=== PATIENT | male | born 1990 | race Caucasian/White ===

== ENCOUNTER 2016-08-28 04:28 | Emergency (ER) | payer BC, OTHER ==
[2016-08-28 05:36] LABS: Hematocrit 47 % (42-52); Hemoglobin 15.8 g/dl (14.0-18.0); Mean Corpuscular HGB Conc 34 g/dl (31-36); Mean Corpuscular Hemoglobin 32 pg (27-31); Mean Corpuscular Volume 94 fL (80-94); Mean Platelet Volume 9 um3 (7.4-10.4); Red Blood Count 4.94 10^6/ul (4.0-5.4); Red Cell Distribution Width 13 % (10.5-15); White Blood Count 10.6 10^3/ul (3.5-10.8)
[2016-08-28 05:48] LABS: ALT 13 U/L (7-52); AST 24 U/L (13-39); Albumin 4.6 g/dL (3.2-5.2); Alkaline Phosphatase 46 U/L (34-104); Anion Gap 10 mmol/L (2-11); Blood Urea Nitrogen 7 mg/dL (6-24); CO2 Carbon Dioxide 24 mmol/L (22-32); Calcium 9.5 mg/dL (8.6-10.3); Chloride 104 mmol/L (101-111); EGFR African American 135.4 (>60); EGFR Non-African American 105.3 (>60); Globulin 2.9 g/dL (2-4); Glucose 98 mg/dL (70-100); Potassium 3.1 mmol/L (3.5-5.0); Sodium 138 mmol/L (133-145); Total Protein 7.5 g/dL (6.4-8.9)
[2016-08-28 05:53] LABS: Acetaminophen < 15 mcg/mL; Alcohol 141 mg/dL (<10); Salicylate < 2.50 mg/dL (<30)
[2016-08-28 06:03] LABS: TSH (Thyroid Stimulating Horm) 1.76 mcIU/mL (0.34-5.60)
--- NOTE | 2016-08-28 06:19 | ED ---
Flakito Gibson Adam, rayneed for Ervin Cortés on 08/28/16 at 0456 . Psychiatric Complaint - HPI Summary HPI Summary: Pt is a 26 year old brought in by law enforcement as 9.41 with SI. Pt believes that a friend of his called the police because of concerns that he would harm himself. The pt was reportedly inside a bathroom with a knife and he presents with multiple superficial lacerations on his left forearm. He states that he has a hx of depression and that he has been feeling "down" lately. He reports significant alcohol use but denies drug use. He states that he is UTD with his vaccinations. - History Of Current Complaint Chief Complaint: EDMentalHealth Time Seen by Provider: 08/28/16 04:46 Hx Obtained From: Patient Onset/Duration: Gradual Onset, Lasting Hours, Still Present Timing: Constant Severity Initially: Moderate Severity Currently: Moderate Character: Depressed Aggravating Factor(s): Nothing Alleviating Factor(s): Nothing Related History: Positive For: Prior Psychiatric Issues Has Suicidal: Reports: Thoughts, Demonstrates Gesture PMH/Surg Hx/FS Hx/Imm Hx Psychiatric History: Reports: Hx Depression Infectious Disease History: Denies: Traveled Outside the [place] in Last 30 Days - Family History Known Family History: Positive: None - R and n/c - Social History Lives: With Family - Mother Alcohol Use: Daily Hx Substance Use: No Substance Use Type: Reports: None Review of Systems Positive: Other - Superficial lacerations on left forearm Positive: Depressed All Other Systems Reviewed And Are Negative: Yes Physical Exam Triage Information Reviewed: Yes Vital Signs Reviewed: Yes Appearance: Positive: Well-Appearing, No Pain Distress Skin: Positive: Other - Superficial lacerations on left forearm Head/Face: Positive: Normal Head/Face Inspection Eyes: Positive: EOMI, ARSALAN ENT: Positive: Normal ENT inspection Neck: Positive: Supple, Nontender Respiratory/Lung Sounds: Positive: Clear to Auscultation, Breath Sounds Present Cardiovascular: Positive: RRR, Pulses are Symmetrical in both Upper and Lower Extremities Abdomen Description: Positive: Nontender, Soft Bowel Sounds: Positive: Present Musculoskeletal: Positive: Normal, Strength/ROM Intact Course/Dx - Differential Dx/Clinical Impression Provider Diagnosis: Suicidal ideation Discharge - Discharge Plan Condition: Stable Disposition: OTHER Discharge Disposition Comment: Pending mental health evaluation The documentation as recorded by the Flakito bonner Adam accurately reflects the service I personally performed and the decisions made by me, Ervin Cortés.
[2016-08-28 10:07] LABS: Urine Bilirubin Negative (Negative); Urine Glucose Negative (Negative); Urine Nitrite Negative (Negative)
[2016-08-28 10:35] LABS: Benzodiazepine Urine Screen None Detected (None Detect)
[2016-08-28] MEDS ORDERED: Ondansetron ODT TAB* 4 MG PO ONE (11:13)
[2016-08-28 17:09] VITALS: BP 121/73
== END 2016-08-28 19:50 | disposition home or self-care (01) ==
LOC: ED 04:28
DX: R45.851 Suicidal ideations (principal)
CPT/HCPCS: 36415; 80053; 80307; 80320; 80329; 81003; 84443; 85025; 99285; G0480

== ENCOUNTER 2018-04-01 20:01 | Inpatient (IN) | payer OTHER ==
--- NOTE | 2018-04-01 20:09 | ED ---
Psychiatric Complaint - HPI Summary HPI Summary: This patient is a 27 year old M brought in by ambulance to [facility] due to an overdose of various unknown allergy medications and [id number] Seroquel tablets around 1700 this evening with the intention of harming self. Patient denies consumption of etoh or other street drugs. Patient was hospitalized for a similar episode on 03/13/18, requiring intubation. Officer reports a previously unreported attempt on 03/23/18. - History Of Current Complaint Hx Obtained From: Patient, EMS, Medical Records Onset/Duration: Lasting Hours Timing: Constant Character: Depressed Alleviating Factor(s): Nothing Has Suicidal: Reports: Thoughts, Demonstrates Gesture - Allergies/Home Medications Allergies/Adverse Reactions: Allergies Allergy/AdvReac Type Severity Reaction Status Date / Time No Known Allergies Allergy Verified 04/01/18 20:10 PMH/Surg Hx/FS Hx/Imm Hx Sensory History: Denies: Hx Contacts or Glasses, Hx Deafness, Hx Hearing Aid Opthamlomology History: Denies: Hx Contacts or Glasses EENT History: Denies: Hx Deafness Psychiatric History: Reports: Hx Eating Disorder - Periods of restricting food, exercise, or bingeing., Hx Depression Denies: Hx of Violent Episodes Against Others - Family History Known Family History: Positive: Hypertension - Social History Alcohol Use: Daily Alcohol Amount: Beer, whiskey, Tequila this date Hx Substance Use: No Substance Use Type: Reports: Other Substance Use Comment - Amount & Last Used: Pt denies Smoking Status (MU): Light Every Day Tobacco Smoker Type: Cigarettes Have You Smoked in the Last Year: Yes Review of Systems Negative: Fever Positive: Depressed All Other Systems Reviewed And Are Negative: Yes Physical Exam - Summary Physical Exam Summary: Appearance:, Well-nourished, lying in bed comfortably Skin: Warm, dry, no obvious rash Eyes: sclera anicteric, no conjunctival pallor, pupils are 5mm and reactive ENT: mucous membranes moist, pharynx appears normal Neck: Supple, nontender Respiratory: Clear to auscultation, no signs of respiratory distress Cardiovascular: Normal S1, S2. No murmurs. Normal distal pulses in tibial and radial bilaterally. Tachycardic at 125 BPM Abdomen: Soft, nontender, normal active bowel sounds present Musculoskeletal: Normal, Strength/ROM Intact Neurological: , awake and alert, oriented, to person and month no year or place speech is garbled at times, gets confused when forming sentences Triage Information Reviewed: Yes Vital Signs Reviewed: Yes Diagnostics - Laboratory Result Diagrams: 04/02/18 05:54 04/02/18 05:54 Lab Statement: Any lab studies that have been ordered have been reviewed, and results considered in the medical decision making process. - EKG 2015 Cardiac Rate: Tachycardia - 106 BPM EKG Rhythm: Sinus Tachycardia Ectopy: None Course/Dx - Course Course Of Treatment: 27 year old M brought in by ambulance to [facility] due to an overdose of various unknown allergy medications and [id number] Seroquel tablets around 1700 this evening with the intention of harming self. Patient denies consumption of etoh or other street drugs. Patient was hospitalized for a similar episode on 03/13/18, requiring intubation. Patient is awake, alert, and oriented to person and month but not year or place. Speech is garbled at times. Patient gets confused when forming sentences. Pupils are 5mm and reactive. Patient is given IVF. Bloodwork and toxicology is obtained. Patient care discussed with Dr. Evans, hospitalist, who agrees to admit this patient. - Differential Dx/Clinical Impression Provider Diagnosis: Suicide attempt by drug ingestion - Physician Notifications Discussed Care Of Patient With: Ashley Evans - hospitalist Time Discussed With Above Provider: 21:30 Instructed by Provider To: Admit As Inpatient - Critical Care Time Critical Care Time: 30-74 min - Polysubstance overdose with abnormal mentation and vital signs, requiring frequent reassessment, IV fluids, and admission to telemetry. Discharge - Sign-Out/Discharge Documenting (check all that apply): Patient Departure - admit - Discharge Plan Condition: Guarded Disposition: ADMITTED TO [facility] - Billing Disposition and Condition Condition: GUARDED Disposition: Admitted to [facility] - Attestation Statements Document Initiated by Scribe: Yes Documenting Scribe: Peyton Benavides Provider For Whom Esme is Documenting (Include Credential): Ambrose Sumner MD Scribe Attestation: Peyton Gibson, rayneed for Ambrose Sumner MD on 04/03/18 at 0053. Scribe Documentation Reviewed: Yes Provider Attestation: The documentation as recorded by the scribePeyton accurately reflects the service I personally performed and the decisions made by me, Ambrose Sumner MD
[2018-04-01] MEDS ORDERED: NS 0.9% 1000 ML* 2,000 ML IV ONE (20:10)
[2018-04-01 20:36] LABS: ABS Basophils 0.1 10^3/ul (0-0.2); ABS Eosinophils 0 10^3/ul (0-0.6); ABS Lymphocytes 0.8 10^3/ul (1.0-4.8); ABS Monocytes 0.9 10^3/ul (0-0.8); ABS Neutrophils 18.9 10^3/ul (1.5-7.7); ABS Nucleated RBC 0 10^3/ul; Eosinophil % 0.1 % (0-6); Hematocrit 40 % (42-52); Hemoglobin 13.8 g/dl (14.0-18.0); Lymphocyte % 3.7 % (25-47); Mean Corpuscular HGB Conc 34 g/dl (31-36); Mean Corpuscular Hemoglobin 32 pg (27-31); Mean Corpuscular Volume 93 fL (80-94); Nucleated Red Blood Cells % 0; Platelet Count 312 10^3/ul (150-450); Red Blood Count 4.31 10^6/ul (4.00-5.40); Red Cell Distribution Width 12 % (10.5-15); White Blood Count 20.7 10^3/ul (3.5-10.8)
[2018-04-01 20:54] LABS: EGFR Non-African American 96.7 (>60)
[2018-04-01] MEDS ORDERED: Albuterol 2.5 MG/3 ML NEB.SOL* (0.083%) INH PRN (23:28)
[2018-04-02] MEDS: NS 0.9% 1000 ML* 1,000 ML IV SCH ×3 (00:03→16:51)
[2018-04-02 01:49] LABS: Urine Appearance Clear; Urine Blood Negative (Negative); Urine Color Yellow; Urine Ketones 1+ (Negative); Urine Protein Negative (Negative); Urine Specific Gravity 1.008 (1.010-1.030); Urine Urobilinogen Negative (Negative)
[2018-04-02] MEDS ORDERED: ZOSYN 3.375 GM x ONE DOSE over 30 miuntes IVPB ×2 (02:00)
[2018-04-02] MEDS ORDERED: Piperacillin/Tazobac ADVAN(*) 3.375 GM in NS 0.9% 100 ML* 100 ML IVPB SCH (05:30)
[2018-04-02 06:10] LABS: ABS Basophils 0 10^3/ul (0-0.2); ABS Eosinophils 0 10^3/ul (0-0.6); ABS Lymphocytes 1.2 10^3/ul (1.0-4.8); ABS Monocytes 1.1 10^3/ul (0-0.8); ABS Neutrophils 11.9 10^3/ul (1.5-7.7); ABS Nucleated RBC 0 10^3/ul; Eosinophil % 0.1 % (0-6); Hematocrit 39 % (42-52); Hemoglobin 13.2 g/dl (14.0-18.0); Lymphocyte % 8.7 % (25-47); Mean Corpuscular HGB Conc 34 g/dl (31-36); Mean Corpuscular Hemoglobin 32 pg (27-31); Mean Corpuscular Volume 93 fL (80-94); Mean Platelet Volume 8.4 fL (7.4-10.4); Nucleated Red Blood Cells % 0.1; Platelet Count 314 10^3/ul (150-450); Red Blood Count 4.19 10^6/ul (4.00-5.40); Red Cell Distribution Width 12 % (10.5-15); White Blood Count 14.3 10^3/ul (3.5-10.8)
[2018-04-02 06:20] LABS: INR 1.07 (0.77-1.02)
[2018-04-02 06:24] LABS: EGFR Non-African American 113.5 (>60)
--- NOTE | 2018-04-02 08:30 | HP ---
CC: Dr. Carrillo * HISTORY AND PHYSICAL: DATE OF ADMISSION: 04/01/18 PRIMARY CARE PROVIDER: Dr. Carrillo. ATTENDING PHYSICIAN WHILE IN THE HOSPITAL: Dr. Ashley Evans * (report dictated by Regina Sandoval NP). CHIEF COMPLAINT: 1. Suicidal ideation. 2. Overdose. HISTORY OF PRESENTING ILLNESS: Mr. Seals is a 27-year-old male patient who was just here about 20 days ago with a suicide attempt from overdose. He was admitted and intubated in our ICU, stabilized and then transferred to the [facility] for stabilization. He was discharged on 03/22/18, about 10 days ago. He had been with his parents and had been doing well to the point where his parents felt that he could go home without their observation, that he should be doing well with his friends and they were giving him some more space. They had taken him back to his apartment on . He was initially doing well; however, he started becoming suicidal. He denied hearing voices. He said that he tried to take his life again tonight with overdosing on Benadryl and Seroquel. He states that he has not been hallucinating. There were no recent changes in his social life that he admitted to me. He says that he was just feeling very depressed and this is why he tried to take his life. He sent a text to one of his friends. His friend was concerned given his history and they had called 911 and the patient was brought into the hospital for evaluation. Mr. Seals did try to take his life today by ingesting Seroquel in addition to his Benadryl. PAST MEDICAL HISTORY: Significant for: 1. Depression. 2. Anxiety. 3. Asthma. PAST SURGICAL HISTORY: Denied. HOME MEDICATIONS: According to the discharge included: 1. Seroquel 100 mg at bedtime. 2. Celexa 20 mg daily. ALLERGIES TO MEDICATIONS: No known drug allergies. FAMILY HISTORY: His mother has Parkinson's. Father is healthy. SOCIAL HISTORY: He does state that he has a history of abusing alcohol, occasionally smokes marijuana, and denies any other illicit substance abuse. Surrogate decision maker is his parents. REVIEW OF SYSTEMS: There was no documented fever. He denies having any significant weight change. There is no double vision. There is no ear discharge. He denied having any rhinorrhea. There was no sore throat. There was no thyroid enlargement. He denied having any chest pain. There was no orthopnea. There was no nocturnal dyspnea. He denied having any abdominal pain. There was no nausea, no vomiting. There was no dysuria. There was no frequency. There was no seizure. There was no loss of consciousness. No pruritus and no skin ulcerations. Review of 14 systems completed, all others were negative. PHYSICAL EXAMINATION GENERAL: At this time, Mr. Seals is a 27-year-old male patient. He is sitting on the ED stretcher. He does not appear to be in any acute distress. He is awake and he is alert. He is, again, at times confused. He will be having a conversation and then he will trail off and he was at one point talking about [place], which was not in context to the questions being asked, but he does know his name and he does know he is in the hospital. VITAL SIGNS: Blood pressure 142/82 with a pulse of 94, respirations 18, O2 sat 99%, temperature 99.6. HEENT: Head: Atraumatic, normocephalic. Eyes: Pupils are equal and reactive to light. Sclerae are anicteric and not pale. Throat: Oral mucosa appears to be moist. No oropharyngeal erythema. NECK: Supple. LUNGS: Clear to auscultation. There were no wheezes, rales, or rhonchi. HEART: Sounds S1, S2. He is tachycardic. He had no murmurs, rubs, or gallops. ABDOMEN: Soft. It was flat. It was nontender. Bowel sounds were present. EXTREMITIES: Pulses were 2+ throughout. He is moving all 4 extremities with 5/ 5 strength. NEUROLOGICAL: He is awake. He is alert. He is oriented again to self, place; confused to time. Speech is clear. Tongue midline. He had no gross focal deficits. SKIN: Intact. LABORATORY DATA/DIAGNOSTIC STUDIES: Today revealed a WBC of 20.7, RBC of 4.31 , hemoglobin of 13.8, hematocrit of 40, platelet count of 312. His sodium was 137, potassium was 3.6, chloride 103, bicarb 25, BUN 12, creatinine of 0.93, glucose of 163, lactate 1.9, calcium 8.7. Total bili 0.4, AST 17, ALT 12, alk phos 56, albumin of 4. Toxicology was negative thus far. He did have an EKG obtained today, which did show sinus tachycardia, rate of 107. He did have diffuse ST depression. We looked back at the previous EKG and the ST depression is now new. His QTc was 478. When you look back to previous EKGs, again that depression was not present, but again he is more tachycardic now. He is not complaining of chest pain. Old medical records were reviewed. ASSESSMENT AND PLAN: Mr. Seals is a 27-year-old male patient with a known psychiatric history with overdose recently, here on 03/13/18, presenting again today with suicidal ideation in an attempt to take his life with Benadryl and Seroquel overdose. He will be admitted under inpatient status for: 1. Overdose: I did touch base with poison control. The plan will be for supportive care, p.r.n. benzodiazepines if needed for agitation. We will check EKG in the morning. In addition to this, we will place him on normal saline at 125 an hour. We will continue to monitor him, continue with supportive care, and we will get psychiatric evaluation when he is stable. 2. History of depression and anxiety: I am holding his meds currently given the fact that he overdosed on them today and we will restart them when deemed appropriate by Psychiatry. 3. Asthma: We will continue p.r.n. albuterol. 4. DVT prophylaxis: We will order SCDs. 5. Fluids, electrolytes, nutrition: He can have a clear liquid diet. TIME SPENT: Time spent on the admission was 60 minutes, greater than half of that time was spent [id number] with the patient obtaining my history and physical, the other half of the time was spent going over the plan of care with the patient and implementing plan of care. I did discuss the plan of care with my attending, Dr. Evans, and she is in agreement. REGINA SANDOVAL NP [id number]/CPS #: [id number] [facility] MED[facility] CENTERJenniffer
[2018-04-02] MEDS ORDERED: Acetaminophen TAB* 325 MG PO PRN (10:48)
--- NOTE | 2018-04-02 10:49 | PN ---
Subjective Date of Service: 04/02/18 Interval History: Pt is feeling ok this AM. He states he has not been hallucinating recently. He does seem to think his skin is more yellow/orange than it should be. 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 Objective Active Medications: Albuterol (Ventolin 2.5 Mg/3 Ml Neb.Griselda*) 2.5 mg INH Q2H PRN PRN Reason: SOB/WHEEZING Sodium Chloride (Ns 0.9% 1000 Ml*) 1,000 mls @ 125 mls/hr IV PER RATE STELLA Last Admin: 04/02/18 08:59 Dose: 125 mls/hr Vital Signs - 8 hr 04/02/18 04/02/18 04/02/18 02:45 03:00 04:00 Temperature 99.9 F 99.7 F 98.8 F Pulse Rate 92 85 94 Respiratory 10 17 19 Rate Blood Pressure 143/85 137/83 141/99 (mmHg) O2 Sat by Pulse 98 99 98 Oximetry 04/02/18 04/02/18 04/02/18 04:04 05:00 05:56 Temperature 99.9 F Pulse Rate 86 Respiratory 20 11 Rate Blood Pressure 136/92 (mmHg) O2 Sat by Pulse 97 98 Oximetry 04/02/18 04/02/18 04/02/18 06:00 07:00 07:01 Temperature 99.9 F 99.9 F 99.9 F Pulse Rate 77 90 99 Respiratory 19 20 23 Rate Blood Pressure 140/90 129/77 (mmHg) O2 Sat by Pulse 99 97 99 Oximetry 04/02/18 04/02/18 04/02/18 08:00 08:01 09:00 Temperature 99.7 F 99.7 F 99.9 F Pulse Rate 77 79 76 Respiratory 14 18 15 Rate Blood Pressure 117/60 115/73 (mmHg) O2 Sat by Pulse 97 98 100 Oximetry 04/02/18 04/02/18 04/02/18 09:01 10:00 10:01 Temperature 99.9 F 99.9 F 99.7 F Pulse Rate 73 71 83 Respiratory 18 13 10 Rate Blood Pressure 137/71 (mmHg) O2 Sat by Pulse 99 99 100 Oximetry Oxygen Devices in Use Now: Nasal Cannula Appearance: Young male sitting up in bed, NAD Eyes: No Scleral Icterus Ears/Nose/Mouth/Throat: Mucous Membranes Moist Respiratory: Symmetrical Chest Expansion and Respiratory Effort, Clear to Auscultation Cardiovascular: NL Sounds; No Murmurs; No JVD, RRR, No Edema, - - HR does increase with sitting up Abdominal: NL Sounds; No Tenderness; No Distention Extremities: No Clubbing, Cyanosis Skin: No Nodules or Sclerosis Neurological: Alert and Oriented x 3 Result Diagrams: 04/02/18 05:54 04/02/18 05:54 Assess/Plan/Problems-Billing Mr Seals is a 27 yo M who has a h/o depression/anxiety and was recently hospitalized at [facility] for a benadryl overdose who presented to the ER after overdosing on seroquel and benadryl in an attempt to harm himself. - Patient Problems (1) Overdose Current Visit: Yes Status: Acute Code(s): T50.901A - POISONING BY UNSP DRUG/ MEDS/BIOL SUBST, ACCIDENTAL, INIT SNOMED Code(s): 78689097 Comment: Pt overdosed on both seroquel and benadryl. He had what was likely a toxic encephalopathy on admission as he was hallucinating and very tangential in speech. He is clear currently. Await psychiatry consultation. (2) Encephalopathy, toxic Current Visit: No Status: Acute Code(s): G92 - TOXIC ENCEPHALOPATHY SNOMED Code(s): 54016387 Comment: Secondary to benadryl and seroquel overdose. Now resolved. (3) Urinary retention Current Visit: Yes Status: Acute Code(s): R33.9 - RETENTION OF URINE, UNSPECIFIED SNOMED Code(s): 130434565 Comment: Likely secondary to benadryl overdose. Remove erickson tonight and eval for continued retention. (4) DVT prophylaxis Current Visit: Yes Status: Acute Code(s): LCZ8603 - SNOMED Code(s): 517831837 Comment: SCDs (5) Full code status Current Visit: Yes Status: Acute Code(s): Z78.9 - OTHER SPECIFIED HEALTH STATUS SNOMED Code(s): 873440331 (6) Major depression, recurrent Current Visit: No Status: Acute Code(s): F33.9 - MAJOR DEPRESSIVE DISORDER, RECURRENT, UNSPECIFIED SNOMED Code(s): 89335994
[2018-04-03] MEDS: NS 0.9% 1000 ML* 1,000 ML IV SCH ×2 (00:42→05:34)
[2018-04-03 06:53] LABS: Hematocrit 37 % (42-52); Hemoglobin 12.6 g/dl (14.0-18.0); Mean Corpuscular HGB Conc 34 g/dl (31-36); Mean Corpuscular Hemoglobin 32 pg (27-31); Mean Corpuscular Volume 94 fL (80-94); Mean Platelet Volume 7.9 fL (7.4-10.4); Platelet Count 283 10^3/ul (150-450); Red Blood Count 3.92 10^6/ul (4.00-5.40); Red Cell Distribution Width 12 % (10.5-15); White Blood Count 9.2 10^3/ul (3.5-10.8)
--- NOTE | 2018-04-03 13:30 | PN ---
Subjective Date of Service: 04/03/18 Interval History: Pt is feeling well. He has no complaints today. He would like to be unhooked from the IV/fluids. Psychiatry has not been in yet to see the patient. Objective Active Medications: Acetaminophen (Tylenol Tab*) 650 mg PO Q4H PRN PRN Reason: PAIN Albuterol (Ventolin 2.5 Mg/3 Ml Neb.Griselda*) 2.5 mg INH Q2H PRN PRN Reason: SOB/WHEEZING Vital Signs - 8 hr 04/03/18 05:38 Temperature 97.9 F Pulse Rate 58 Respiratory 14 Rate Blood Pressure 113/63 (mmHg) O2 Sat by Pulse 100 Oximetry Oxygen Devices in Use Now: None Appearance: Young male sitting up in bed, NAD Eyes: No Scleral Icterus Ears/Nose/Mouth/Throat: Mucous Membranes Moist Respiratory: Symmetrical Chest Expansion and Respiratory Effort, Clear to Auscultation Cardiovascular: NL Sounds; No Murmurs; No JVD, RRR, No Edema Abdominal: NL Sounds; No Tenderness; No Distention Extremities: No Clubbing, Cyanosis Skin: No Nodules or Sclerosis Neurological: Alert and Oriented x 3 Result Diagrams: 04/03/18 06:40 04/02/18 05:54 Microbiology and Other Data: Microbiology 04/02/18 00:34 Aerobic Blood Culture - Preliminary Blood Venous No Growth Day 1 Anaerobic Blood Culture - Preliminary No Growth Day 1 04/02/18 00:34 Aerobic Blood Culture - Preliminary Blood Venous No Growth Day 1 Anaerobic Blood Culture - Preliminary No Growth Day 1 Assess/Plan/Problems-Billing Mr Seals is a 27 yo M who has a h/o depression/anxiety and was recently hospitalized at [facility] for a benadryl overdose who presented to the ER after overdosing on seroquel and benadryl in an attempt to harm himself. - Patient Problems (1) Overdose Current Visit: Yes Status: Acute Code(s): T50.901A - POISONING BY UNSP DRUG/ MEDS/BIOL SUBST, ACCIDENTAL, INIT SNOMED Code(s): 03382614 Comment: Pt overdosed on both seroquel and benadryl. He had what was likely a toxic encephalopathy on admission as he was hallucinating and very tangential in speech. Pt's mental status normal currently. Await psychiatry input. (2) Encephalopathy, toxic Current Visit: Yes Status: Acute Code(s): G92 - TOXIC ENCEPHALOPATHY SNOMED Code(s): 38735034 Comment: Secondary to benadryl and seroquel overdose. Now resolved. (3) Urinary retention Current Visit: Yes Status: Acute Code(s): R33.9 - RETENTION OF URINE, UNSPECIFIED SNOMED Code(s): 316901954 Comment: Likely secondary to benadryl overdose. Resolved. (4) DVT prophylaxis Current Visit: Yes Status: Acute Code(s): YCS8983 - SNOMED Code(s): 618196415 Comment: SCDs/ambulation (5) Full code status Current Visit: Yes Status: Acute Code(s): Z78.9 - OTHER SPECIFIED HEALTH STATUS SNOMED Code(s): 442775729 (6) Major depression, recurrent Current Visit: No Status: Acute Code(s): F33.9 - MAJOR DEPRESSIVE DISORDER, RECURRENT, UNSPECIFIED SNOMED Code(s): 24256708
--- NOTE | 2018-04-03 14:11 | CONSULT ---
Identification - Patient Identification Reason for Psychiatric Consultation: Suicidal Ideation -: Patient is a 27 year old, M admitted on 04/01/18. - MHU Identification Employment Status: Employed Hx Psychiatric Hospitalization: Yes History - Objective HPI: Addy is seen in consultation following another medical hospitalization secondary to intentional, suicidal overdose, this time on Benadryl and Seroquel. He is tearful today and cannot contract for safety. "I feel even worse this time than the last time. Everything was fine until the day after Thanksgiving. I had gone back to my apartment and I just started feeling so bad about my self. I cancelled all my plans with friends and broke up with this girl I've been seeing. It all fell apart so fast." The patient did follow up with [facility] after his recent discharge earlier this month from the [facility], however, the [facility] program had been missing days because of the holiday and this created a delay in him utilizing these group services and being fully enrolled, although he did show up to one as a guest to see what it was like. The patient' s parents, Jay and Verona, are present and supportive. They are advocating for a longer hospitalization this time and the patient is agreeable to signing into the [facility] on a voluntary basis for further inpatient care. I have spoken with hospitalist attending, Dr. Bundy, who indicates that the patient is medically clear for transfer. Exam Appearance: Well Developed/Nourished Hygiene: Normal Grooming: Well Kept Psychomotor Activities: Normal Exhibits Abnormal Movement: No Attitude and Relatedness: Cooperative Eye Contact: Good - Speech Quality: Unpressured Latencies: Normal Quantity: Appropriate Patient's Decription of Mood: "Sad" Observed Affect: Tearful Affect Consistent with: Dysphoria Patient's Thought Process: Coherent Thought Content: Yes Suicidal Planning, No Passive Wish, No Homicidal Ideation, No Paranoid Ideation Experiencing Hallucinations: No, Sensorium is Clear Type of Hallucinations: Visual: No, Auditory: No, Command: No Level of Consciousness: Alert Orientation: Yes Intact, Yes Orientated to Time, Yes Orientated to Place, Yes Orientated to Person Impulse Control: Tenuous Insight and Judgement: Fair Impression - Impression Clinical Impression: 27 y.o. single, bisexual, male with a history of depression and alcohol abuse who was just discharged earlier this month from the [facility], who is currently admitted to the medical service on following an intentional suicidal overdose on Benadryl and Seroquel. Inpatient DSM-V Dx: F33.9 Merits Inpatient Hospitalization: Yes MHU: Problem List - Patient Problems (1) Major depressive disorder, recurrent episode Current Visit: No Status: Acute Code(s): F33.9 - MAJOR DEPRESSIVE DISORDER, RECURRENT, UNSPECIFIED SNOMED Code(s): 309859482 Plan - Treatment Plan Treatment Plan: The patient is to be transferred to the [facility] on 01.19 paperwork. There we will continue citalopram and quetiapine therapies and perhaps increase the doses. Psychiatry will take over as the captain of the ship. Continued Medication Management: Continue Outpt Medication Medications: Current Medications Acetaminophen (Tylenol Tab*) 650 mg PO Q4H PRN PRN Reason: PAIN Albuterol (Ventolin 2.5 Mg/3 Ml Neb.Griselda*) 2.5 mg INH Q2H PRN PRN Reason: SOB/WHEEZING - Discharge Plan Discharge Plan: Inpatient Hospitalization
[2018-04-03] MEDS ORDERED: hydrOXYzine HCL TAB* 50 MG PO PRN (14:16)
[2018-04-03] MEDS ORDERED: QUEtiapine TAB* 100 MG PO SCH (21:00)
[2018-04-04] MEDS ORDERED: Citalopram TAB* 20 MG PO SCH (09:00)
--- NOTE | 2018-04-04 13:14 | PN ---
MHU: Group Therapy Note - Service Type Service Type: [id number] Group Psychotherapy - Group Psychotherapy Note: Gwyn was active throughout cbt this morning, initiating thougtful and insightful clinincal conversation. He presents with good affect that is euthymic with discussion, and exhibits good sense of humor. He discussed interest in moving eventually, but is unsure of where to move to, and expressed his interest in moving in with his parents as a means to save money. He was well related and empathic with peers and staff.
[2018-04-04] MEDS ORDERED: QUEtiapine TAB* 100 MG PO SCH (21:00)
--- NOTE | 2018-04-04 23:04 | HP ---
PSYCHIATRIC ASSESSMENT: DATE OF ADMISSION: 04/01/18 DATE OF TRANSFER: To the behavioral science unit was 04/03/18. JUSTIFICATION FOR PSYCHIATRIC INPATIENT CARE: The patient is in need of 24- hour supervision and care due to suicidal overdose on Benadryl and Seroquel. CHIEF COMPLAINT: "I can't believe I'm back here, things were going well, I just got suicidal so fast." HISTORY OF PRESENT ILLNESS: The patient is a 27-year-old single, mixed raced, bisexual male with a history of depression and self-injury, who was just discharged from the behavioral science unit on 03/22/18, who now returns to the BSU as a transfer from the medical unit where he underwent medical stabilization following another overdose this time on approximately 20 tablets of 100 mg Seroquel and close to a full bottle of [id number] Benadryl. The patient indicates that when he left our unit on 03/22/18, he did follow through with seeing a psychiatrist at [facility]. He also started attending groups at the [facility]; however, he missed several of these later in the week of due to the holiday. He is stating that on the Tuesday following he was back in his apartment alone, started isolating himself from his friends and had a resumption of suicidal ideations, "I see all my friends who have moved out of [place] and now have careers and are advancing and I feel like I'm stuck here. I can't believe after all those coping skills that I learnt, my head just went right back to suicide as the solution to my problems." The patient indicates that he drank a little bit of alcohol, but did not like the taste of it and got a container of Benadryl and took them with the remaining Seroquel that he had which was prescribed from his previous hospitalization. He was medically cleared, but still having suicidal ideations and was transferred back to the BSU. Symptomatically, he continues to endorse difficulty falling asleep, anhedonia, guilt, poor energy, lack of concentration, and suicidal thoughts. He denies appetite disturbance or psychomotor retardation. Historically, he has had some manic symptoms such as increased goal-directed activities, hyper-talkativeness with mild racing thoughts most recently over the summer; however, he denies any history of grandiosity, decreased need for sleep, distractibility, or indiscrete behaviors. PAST PSYCHIATRIC HISTORY: The patient was referred to [facility] and sees Dr. Yoo there as well as a therapist. He is still working on enrollment in the [facility] program. He has had numerous suicide attempts in the past including as a teenager when he tried to cut his throat. The second was in the summer, when he drank a liter and half of tequila and tried to cut himself, then in December 2017 when he overdosed on over-the- counter pills and alcohol, then again in March of this year when he overdosed on alcohol and Benadryl followed by this most recent suicidal attempt. He denies any history of trauma. He denies any history of traumatic brain injury. He denies any history of abuse or neglect. SUBSTANCE ABUSE HISTORY: The patient does endorse a history of abusing alcohol and states that he has utilized community treatment such as AA groups in the past. He denies any history of rehabs or DWIs. Most recent drinks were on the day of his overdose. He also occasionally uses cannabis with last use 4 to 5 months ago. He has used LSD on two occasions, but he denies other illicit substance abuse. PAST MEDICAL HISTORY: Significant for early life asthma that has resolved. MEDICATIONS: He is on: 1. Citalopram 20 mg p.o. daily. 2. Quetiapine 100 mg daily. ALLERGIES: He has no known drug allergies. FAMILY HISTORY: He has a younger sister with depression and a mother who has had both depression and self-harming behaviors in the past. He is unaware of any completed suicides. SOCIAL HISTORY: The patient was born and raised in the [place] area to an intact family and his parents are still together. He has a 31-year-old older sister and a 20-year-old younger sister. The patient dropped out of high school in 10th grade due to anxiety, but got a GED, later got an associate's degree at [employer] and a bachelor's degree in [employer] production from [place] [employer]. 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 He is living in an apartment with 2 roommates in [place]. He recently broke up with a girlfriend. The patient is sexually active with 2 different partners and identifies as bisexual. He has no history of sexually transmitted diseases. The patient is not rastafarian nor spiritual. He has never been in the . He has no history of legal problems. MENTAL STATUS EXAM: The patient is a young, mixed raced, fair-skinned male with close cropped shaved hair, stubbly rodriguez, who has a nose ring. He has tattoos on his fingers and his right upper arm. He is casually groomed with a plaid shirt and sweatpants. He is sitting up in a chair playing a guitar, making fairly good eye contact. Speech has some mild stuttering, but he uses fluent Norwegian. Mood is depressed with a constricted affect. Thought process is linear and goal directed. Thought content is significant for some continued thoughts of suicide. He denies homicidality. He denies auditory or visual hallucinations. Insight and judgment appear to be fair given his willingness to come on to the behavioral health unit. Cognitively, he is awake and alert with what would appear to be an average intellect. DIAGNOSES: [place] I: Major depressive disorder, recurrent, severe, without psychotic features; generalized anxiety disorder; and alcohol use disorder. [place] II: Rule out borderline personality traits. ASSESSMENT: The patient is a 27-year-old single, white, bisexual male with a history of depression, who is currently hospitalized in the ICU following an intentional suicidal overdose on a handful of epax-rtp-rwhusmi Benadryl as well as Seroquel. He is medically cleared and now transferred to the BSU where he will need likely a longer term treatment than his most recent hospitalization. PLAN: We will admit the patient to the BSU on q.15 minute checks for his own safety. We will increase citalopram from 20 to 30 mg daily and increase quetiapine from 100 to 150 mg p.o. q.h.s. It is uncertain whether he would be agreeable to substance abuse treatment, although I think this is warranted given his abuse of alcohol. While he is here, he is certainly encouraged to avail himself of all milieu activities including individual and group psychotherapies. We will be working with his family on a family meeting prior to his discharge. I think the most important treatment for him will be [facility] since it is coping skill based and he lacks ways of dealing with his problems that do not involve suicidal thought. [id number]/CPS #: [id number] JOSÉ MANUEL
[2018-04-05] MEDS: Citalopram TAB* 20 MG PO SCH (08:57)
--- NOTE | 2018-04-05 14:27 | PN ---
Subjective - Subjective Date of Service: 04/05/18 Service Type: [id number] Hosp care 25 min moderate complexity Subjective: Addy is less irritable than yesterday but still feels a sense of hopelessness, like he has nothing in life to look forward to and that his would come as a relief. He denies active suicidal planning though. He also relates that he's noticed an increase in activation and anxiety when taking quetiapine at night. We discussed the possibility of lithium augmentation, particularly due to my suspicions that he might have bipolar disorder, and he is agreeable with a trial of this. He is active on the unit and going to groups. Objective - Appearance Appearance: Well Developed/Nourished, Thin Framed Dysmorphic Features: No Hygiene: Normal Grooming: Well Kept - Behavior Psychomotor Activities: Normal Exhibits Abnormal Movement: No - Attitude and Relatedness Attitude and Relatedness: Cooperative Eye Contact: Good - Speech Quality: Unpressured Latencies: Normal Quantity: Appropriate - Mood Patient's Decription of Mood: "Sad" - Affect Observed Affect: Constricted Affect Consistent with: Dysphoria - Thought Process Patient's Thought Process: Coherent Thought Content: Yes Passive Wish, No Suicidal Planning, No Homicidal Ideation, No Paranoid Ideation - Sensorium Type of Hallucinations: Visual: No, Auditory: No, Command: No - Level of Consciousness Level of Consciousness: Alert Orientation: Yes Intact, Yes Orientated to Time, Yes Orientated to Place, Yes Orientated to Person - Impulse Control Impulse Control: Tenuous - Insight and Judgement Insight and Judgement: Fair - Group Participation Particating in Group Activities: Yes - Medication Management Medication Management Adherence: Yes Assessment - Assessment Merits Inpatient Hospitalization: For Immediate Safety, For Stabilization Inpatient DSM-V Dx: F33.9 Clinical Impression: 27 y.o. single, bisexual, male with a history of depression and alcohol abuse who was just discharged earlier this month from the BSU, who is currently admitted to the medical service on following an intentional suicidal overdose on Benadryl and Seroquel. MHU: Problem List - Patient Problems (1) Major depressive disorder, recurrent episode Current Visit: No Status: Acute Code(s): F33.9 - MAJOR DEPRESSIVE DISORDER, RECURRENT, UNSPECIFIED SNOMED Code(s): 333419787 Plan - Plan Treatment Plan: The patient has been readmitted to psychiatry and is taking a trial of citalopram 30mg PO qday and quetiapine 150mg PO qhs. Quetiapine may be causing akathisia and will be replaced with a trial of lithium 300mg PO qhs. Continue inpatient treatment. Continued Medication Management: Different Medication Medications: Current Medications Acetaminophen (Tylenol Tab*) 650 mg PO Q4H PRN PRN Reason: PAIN Albuterol (Ventolin 2.5 Mg/3 Ml Neb.Griselda*) 2.5 mg INH Q2H PRN PRN Reason: SOB/WHEEZING Citalopram Hydrobromide (Celexa Tab*) 30 mg PO DAILY [facility] Last Admin: 04/05/18 08:57 Dose: 30 mg Hydroxyzine HCl (Atarax Tab*) 50 mg PO Q6H PRN PRN Reason: ANXIETY [place] Carbonate ([place] Carbonate Tab*) 300 mg PO BEDTIME [facility] - Discharge Plan Discharge Plan: Inpatient Hospitalization
--- NOTE | 2018-04-05 15:57 | PN ---
MHU: Group Therapy Note - Service Type Service Type: [id number] Group Psychotherapy - Group Participation Patient Participating in Group: Yes Level of Group Participation: Attentive Relatedness to Group: Rhoda Daly was pleasant during group. He offered a few answers to questions and was participatory. he left group early.
[2018-04-05] MEDS: Lithium Carbonate TAB* 300 MG PO SCH (20:31)
[2018-04-06] MEDS: Citalopram TAB* 20 MG PO SCH (09:28)
--- NOTE | 2018-04-06 10:47 | PN ---
Subjective - Subjective Date of Service: 04/06/18 Service Type: [id number] Hosp care 25 min moderate complexity Subjective: Addy tolerated lithium well last night but continued to have suicidal thoughts. "It's like a thought loop in my mind. I'm just so used to going there in my head." He is interacting well in the milieu and attending groups regularly. Objective - Appearance Appearance: Well Developed/Nourished Dysmorphic Features: No Hygiene: Normal Grooming: Well Kept - Behavior Psychomotor Activities: Normal Exhibits Abnormal Movement: No - Attitude and Relatedness Attitude and Relatedness: Cooperative Eye Contact: Good - Speech Quality: Unpressured Latencies: Normal Quantity: Appropriate - Mood Patient's Decription of Mood: "Sad" - Affect Observed Affect: Constricted Affect Consistent with: Dysphoria - Thought Process Patient's Thought Process: Coherent Thought Content: Yes Passive Wish, No Suicidal Planning, No Homicidal Ideation, No Paranoid Ideation - Sensorium Experiencing Hallucinations: No, Sensorium is Clear Type of Hallucinations: Visual: No, Auditory: No, Command: No - Level of Consciousness Level of Consciousness: Alert Orientation: Yes Intact, Yes Orientated to Time, Yes Orientated to Place, Yes Orientated to Person - Impulse Control Impulse Control: Tenuous - Insight and Judgement Insight and Judgement: Fair - Group Participation Particating in Group Activities: Yes - Medication Management Medication Management Adherence: Yes Assessment - Assessment Merits Inpatient Hospitalization: For Immediate Safety, For Stabilization Inpatient DSM-V Dx: F33.9 Clinical Impression: 27 y.o. single, bisexual, male with a history of depression and alcohol abuse who was just discharged earlier this month from the BSU, who is currently admitted to the medical service on following an intentional suicidal overdose on Benadryl and Seroquel. MHU: Problem List - Patient Problems (1) Major depressive disorder, recurrent episode Current Visit: No Status: Acute Code(s): F33.9 - MAJOR DEPRESSIVE DISORDER, RECURRENT, UNSPECIFIED SNOMED Code(s): 206407330 Plan - Plan Treatment Plan: The patient has been readmitted to psychiatry and is taking a trial of citalopram 30mg PO qday and lithium 300mg PO qhs. Will increase citalopram to 40mg PO qday. Continue inpatient treatment. Continued Medication Management: Different Medication Medications: Current Medications Acetaminophen (Tylenol Tab*) 650 mg PO Q4H PRN PRN Reason: PAIN Albuterol (Ventolin 2.5 Mg/3 Ml Neb.Griselda*) 2.5 mg INH Q2H PRN PRN Reason: SOB/WHEEZING Hydroxyzine HCl (Atarax Tab*) 50 mg PO Q6H PRN PRN Reason: ANXIETY [place] Carbonate ([place] Carbonate Tab*) 300 mg PO BEDTIME [facility] Last Admin: 04/05/18 20:31 Dose: 300 mg - Discharge Plan Discharge Plan: Inpatient Hospitalization
--- NOTE | 2018-04-06 11:29 | PN ---
MHU: Group Therapy Note - Service Type Service Type: [id number] Group Psychotherapy - Cognitive Behavioral Group Therapy ( CBT):Patient was attentive and participatory in CBT programming this morning, and remained in good behavioral control. Patient expressed positive insights regarding relevant treatment interventions and goals.
[2018-04-06] MEDS: Lithium Carbonate TAB* 300 MG PO SCH (20:34)
[2018-04-07] MEDS: Citalopram TAB* 40 MG PO SCH (10:13)
--- NOTE | 2018-04-07 14:55 | PN ---
Subjective - Subjective Date of Service: 04/07/18 Service Type: [id number] Hosp care 15 min low complexity Subjective: Addy has experienced a reduction in the frequency and intensity of suicidal thoughts, although they have not resolved completely. We talk about his longer term goals and he mentions moving to a larger city, getting a job in the [employer] field and joining a band as things that would make him feel better about himself. He is encouraged to start taking action on these things. He is tolerating medications well and going to groups and milieu activities. Objective - Appearance Appearance: Well Developed/Nourished Dysmorphic Features: No Hygiene: Normal Grooming: Well Kept - Behavior Psychomotor Activities: Normal Exhibits Abnormal Movement: No - Attitude and Relatedness Attitude and Relatedness: Cooperative Eye Contact: Good - Speech Quality: Unpressured Latencies: Normal Quantity: Appropriate - Mood Patient's Decription of Mood: "Sad" - Affect Observed Affect: Constricted Affect Consistent with: Dysphoria - Thought Process Patient's Thought Process: Coherent Thought Content: Yes Passive Wish, No Suicidal Planning, No Homicidal Ideation, No Paranoid Ideation - Sensorium Experiencing Hallucinations: No, Sensorium is Clear Type of Hallucinations: Visual: No, Auditory: No, Command: No - Level of Consciousness Level of Consciousness: Alert Orientation: Yes Intact, Yes Orientated to Time, Yes Orientated to Place, Yes Orientated to Person - Impulse Control Impulse Control: Intact - Insight and Judgement Insight and Judgement: Good - Group Participation Particating in Group Activities: Yes - Medication Management Medication Management Adherence: Yes Assessment - Assessment Merits Inpatient Hospitalization: For Immediate Safety, For Stabilization Inpatient DSM-V Dx: F33.9 Clinical Impression: 27 y.o. single, bisexual, male with a history of depression and alcohol abuse who was just discharged earlier this month from the BSU, who is currently admitted to the medical service on following an intentional suicidal overdose on Benadryl and Seroquel. MHU: Problem List - Patient Problems (1) Major depressive disorder, recurrent episode Current Visit: No Status: Acute Code(s): F33.9 - MAJOR DEPRESSIVE DISORDER, RECURRENT, UNSPECIFIED SNOMED Code(s): 292147280 Plan - Plan Treatment Plan: The patient has been readmitted to psychiatry and is taking a trial of citalopram 40mg PO qday and lithium 300mg PO qhs. Will check lithium level and TSH on Tuesday (04/10). Continue inpatient treatment. Continued Medication Management: Different Medication Medications: Current Medications Acetaminophen (Tylenol Tab*) 650 mg PO Q4H PRN PRN Reason: PAIN Albuterol (Ventolin 2.5 Mg/3 Ml Neb.Griselda*) 2.5 mg INH Q2H PRN PRN Reason: SOB/WHEEZING Citalopram Hydrobromide (Celexa Tab*) 40 mg PO DAILY [facility] Last Admin: 04/07/18 10:13 Dose: 40 mg Hydroxyzine HCl (Atarax Tab*) 50 mg PO Q6H PRN PRN Reason: ANXIETY [place] Carbonate ([place] Carbonate Tab*) 300 mg PO BEDTIME [facility] Last Admin: 04/06/18 20:34 Dose: 300 mg - Discharge Plan Discharge Plan: Inpatient Hospitalization
[2018-04-07] MEDS: Lithium Carbonate TAB* 300 MG PO SCH (20:02)
[2018-04-08] MEDS: Citalopram TAB* 40 MG PO SCH (08:30)
[2018-04-08] MEDS: Lithium Carbonate TAB* 300 MG PO SCH (20:04)
[2018-04-09] MEDS: Citalopram TAB* 40 MG PO SCH (08:57)
[2018-04-09] MEDS: Lithium Carbonate TAB* 300 MG PO SCH (21:54)
[2018-04-10] MEDS: Citalopram TAB* 40 MG PO SCH (09:00)
[2018-04-10 13:00] LABS: Lithium 0.16 mmol/L (0.6-1.2)
--- NOTE | 2018-04-10 17:07 | PN ---
Subjective - Subjective Date of Service: 04/10/18 Service Type: [id number] Hosp care 25 min moderate complexity Subjective: Addy is doing well superficially on the BSU. He often socializes with others, goes to groups and plays his guitar on the unit. Nonetheless, he continues to have intermittent SI in an automatic, un-triggered fashion. "It's worst when I go to bed at night. There's no distractions. It's mostly like a habit. It's a thought that says 'You're gonna do it...you're gonna kill yourself.' Other than that I actually feel pretty good." We explored themes of irritability and anger today and he endorsed a history of striking himself in the face or purging food when mad at others, rather than expressing that anger towards them. I confronted him about the lack of attachment that seems to exist with his parents, his mother in particular, and I suggested that he is unconsciously angry towards them. "It's not like what you're saying is new to me. People have pointed it out before. I know my mom feels guilty, like she caused all this." He denies any formal plans or thoughts of ending his own life. He is asked to identify a friend or family member who he can call if he has suicidal feelings in the future. He says he will consider this. Objective - Appearance Appearance: Well Developed/Nourished Dysmorphic Features: No Hygiene: Normal Grooming: Well Kept - Behavior Psychomotor Activities: Normal Exhibits Abnormal Movement: No - Attitude and Relatedness Attitude and Relatedness: Cooperative Eye Contact: Fair - Speech Quality: Unpressured Latencies: Normal Quantity: Appropriate - Mood Patient's Decription of Mood: "Fine" - Affect Observed Affect: Fair Affect Consistent with: Euthymia - Thought Process Patient's Thought Process: Coherent Thought Content: Yes Passive Wish, No Suicidal Planning, No Homicidal Ideation, No Paranoid Ideation - Sensorium Experiencing Hallucinations: No, Sensorium is Clear Type of Hallucinations: Visual: No, Auditory: No, Command: No - Level of Consciousness Level of Consciousness: Alert Orientation: Yes Intact, Yes Orientated to Time, Yes Orientated to Place, Yes Orientated to Person - Impulse Control Impulse Control: Tenuous - Insight and Judgement Insight and Judgement: Fair - Group Participation Particating in Group Activities: Yes - Medication Management Medication Management Adherence: Yes Assessment - Assessment Merits Inpatient Hospitalization: For Immediate Safety, For Stabilization Inpatient DSM-V Dx: F33.9 Clinical Impression: 27 y.o. single, bisexual, male with a history of depression and alcohol abuse who was just discharged earlier this month from the BSU, who is currently admitted to the medical service on following an intentional suicidal overdose on Benadryl and Seroquel. MHU: Problem List - Patient Problems (1) Major depressive disorder, recurrent episode Current Visit: No Status: Acute Code(s): F33.9 - MAJOR DEPRESSIVE DISORDER, RECURRENT, UNSPECIFIED SNOMED Code(s): 242205199 Plan - Plan Treatment Plan: The patient has been readmitted to psychiatry and is taking a trial of citalopram 40mg PO qday and lithium 300mg PO qhs. His ithium level this AM was subtherapeutic at 0.16 and we'll increase the dose to 600mg nightly. Continue inpatient treatment. Continued Medication Management: Different Medication Medications: Current Medications Acetaminophen (Tylenol Tab*) 650 mg PO Q4H PRN PRN Reason: PAIN Albuterol (Ventolin 2.5 Mg/3 Ml Neb.Griselda*) 2.5 mg INH Q2H PRN PRN Reason: SOB/WHEEZING Citalopram Hydrobromide (Celexa Tab*) 40 mg PO DAILY [facility] Last Admin: 04/10/18 09:00 Dose: 40 mg Hydroxyzine HCl (Atarax Tab*) 50 mg PO Q6H PRN PRN Reason: ANXIETY [place] Carbonate ([place] Carbonate Tab*) 300 mg PO BEDTIME [facility] Last Admin: 04/09/18 21:54 Dose: 300 mg - Discharge Plan Discharge Plan: Inpatient Hospitalization Lab Results - Lab Results Lab Results: 04/10/18 11:57 TSH 1.03 [place] 0.16 L
[2018-04-10] MEDS: Lithium Carbonate TAB* 300 MG PO SCH (20:03)
[2018-04-11] MEDS: Citalopram TAB* 40 MG PO SCH (08:44)
[2018-04-11] MEDS: Lithium Carbonate TAB* 300 MG PO SCH (20:37)
[2018-04-12] MEDS: Citalopram TAB* 40 MG PO SCH (10:18)
--- NOTE | 2018-04-12 15:47 | PN ---
Subjective - Subjective Date of Service: 04/12/18 Service Type: [id number] Family Medical Psyc Subjective: Family meeting was held today with the patient and his parents, Jay and Verona Seals, along with myself and unit SW Sierra Baker. The patient continues to endorse depressed mood and says that, at best, he is only 50% sure that he will not kill himself. "I'm not trying to hurt anyone else. If anything, I feel guilty. You don't seem to understand that it would be a relief for me to not have to live and go through all of this." His parents are supportive and obviously concerned about his health. Addy is confronted about his underlying anger, which is muted and disguised and, ultimately, turned inwards towards himself. He responds be becoming more visibly demonstrative of his emotions, becoming appropriately louder and more animated as he discusses his frustrations with his symptoms, his two failed suicide attempts and now being back here on the [facility] so soon after his recent discharge. No consensus is reached on a target discharge date, although everyone is in agreement with the plan for him to move in temporarily with his parents following release. He is adherent with medications and unit expectations. Objective - Appearance Appearance: Thin Framed Dysmorphic Features: No Hygiene: Normal Grooming: Well Kept - Behavior Psychomotor Activities: Normal Exhibits Abnormal Movement: No - Attitude and Relatedness Attitude and Relatedness: Cooperative Eye Contact: Fair - Speech Quality: Unpressured Latencies: Normal Quantity: Appropriate - Mood Patient's Decription of Mood: "Sad" - Affect Observed Affect: Constricted Affect Consistent with: Dysphoria - Thought Process Patient's Thought Process: Coherent Thought Content: Yes Passive Wish, No Suicidal Planning, No Homicidal Ideation, No Paranoid Ideation - Sensorium Experiencing Hallucinations: No, Sensorium is Clear Type of Hallucinations: Visual: No, Auditory: No, Command: No - Level of Consciousness Level of Consciousness: Alert Orientation: Yes Intact, Yes Orientated to Time, Yes Orientated to Place, Yes Orientated to Person - Impulse Control Impulse Control: Tenuous - Insight and Judgement Insight and Judgement: Fair - Group Participation Particating in Group Activities: Yes - Medication Management Medication Management Adherence: Yes Assessment - Assessment Merits Inpatient Hospitalization: For Immediate Safety, For Stabilization Inpatient DSM-V Dx: F33.9 Clinical Impression: 27 y.o. single, bisexual, male with a history of depression and alcohol abuse who was just discharged earlier this month from the [facility], who is currently admitted to the medical service on following an intentional suicidal overdose on Benadryl and Seroquel. MHU: Problem List - Patient Problems (1) Major depressive disorder, recurrent episode Current Visit: No Status: Acute Code(s): F33.9 - MAJOR DEPRESSIVE DISORDER, RECURRENT, UNSPECIFIED SNOMED Code(s): 971156311 Plan - Plan Treatment Plan: The patient has been readmitted to psychiatry and is taking a trial of citalopram 40mg PO qday and lithium 600mg PO qhs. Continue inpatient treatment. Continued Medication Management: Different Medication Medications: Current Medications Acetaminophen (Tylenol Tab*) 650 mg PO Q4H PRN PRN Reason: PAIN Albuterol (Ventolin 2.5 Mg/3 Ml Neb.Griselda*) 2.5 mg INH Q2H PRN PRN Reason: SOB/WHEEZING Citalopram Hydrobromide (Celexa Tab*) 40 mg PO DAILY [facility] Last Admin: 04/12/18 10:18 Dose: 40 mg Hydroxyzine HCl (Atarax Tab*) 50 mg PO Q6H PRN PRN Reason: ANXIETY [place] Carbonate ([place] Carbonate Tab*) 600 mg PO BEDTIME [facility] Last Admin: 04/11/18 20:37 Dose: 600 mg - Discharge Plan Discharge Plan: Inpatient Hospitalization
[2018-04-12] MEDS: Lithium Carbonate TAB* 300 MG PO SCH (20:30)
[2018-04-13] MEDS: Citalopram TAB* 40 MG PO SCH (08:18)
--- NOTE | 2018-04-13 13:27 | PN ---
Subjective - Subjective Date of Service: 04/13/18 Service Type: [id number] Hosp care 25 min moderate complexity Subjective: Addy is seen for follow up and we process his family meeting from yesterday. He expresses frustration about his parents and perceives that their efforts to cheer him up by pointing out positive aspects of life are lost on him. "They just don't get that when you're depressed, the motivation and energy that it takes to make plans and move forward just aren't there. Interestingly, he notes increased energy and rate of thought over the past 2 days, which he perceives as similar to episodes in the summer when he tends to get sped up. He notes concerns that these episodes are often characterized by increased self-harm. Nonetheless, he denies SI at this time. Objective - Appearance Appearance: Thin Framed Dysmorphic Features: No Hygiene: Normal Grooming: Well Kept - Behavior Psychomotor Activities: Normal Exhibits Abnormal Movement: No - Attitude and Relatedness Attitude and Relatedness: Cooperative Eye Contact: Fair - Speech Quality: Unpressured Latencies: Normal Quantity: Appropriate - Mood Patient's Decription of Mood: "Sad" - Affect Observed Affect: Constricted Affect Consistent with: Dysphoria - Thought Process Patient's Thought Process: Coherent Thought Content: Yes Passive Wish, No Suicidal Planning, No Homicidal Ideation, No Paranoid Ideation - Sensorium Experiencing Hallucinations: No, Sensorium is Clear Type of Hallucinations: Visual: No, Auditory: No, Command: No - Level of Consciousness Level of Consciousness: Alert Orientation: Yes Intact, Yes Orientated to Time, Yes Orientated to Place, Yes Orientated to Person - Impulse Control Impulse Control: Poor - Insight and Judgement Insight and Judgement: Impaired - Group Participation Particating in Group Activities: Yes - Medication Management Medication Management Adherence: Yes Assessment - Assessment Merits Inpatient Hospitalization: For Immediate Safety, For Stabilization Inpatient DSM-V Dx: F33.9 Clinical Impression: 27 y.o. single, bisexual, male with a history of depression and alcohol abuse who was just discharged earlier this month from the [facility], who is currently admitted to the medical service on following an intentional suicidal overdose on Benadryl and Seroquel. MHU: Problem List - Patient Problems (1) Major depressive disorder, recurrent episode Current Visit: No Status: Acute Code(s): F33.9 - MAJOR DEPRESSIVE DISORDER, RECURRENT, UNSPECIFIED SNOMED Code(s): 919074368 Plan - Plan Treatment Plan: The patient has been readmitted to psychiatry and is taking a trial of citalopram 40mg PO qday and lithium 600mg PO qhs. Continue inpatient treatment. Continued Medication Management: Different Medication Medications: Current Medications Acetaminophen (Tylenol Tab*) 650 mg PO Q4H PRN PRN Reason: PAIN Albuterol (Ventolin 2.5 Mg/3 Ml Neb.Griselda*) 2.5 mg INH Q2H PRN PRN Reason: SOB/WHEEZING Citalopram Hydrobromide (Celexa Tab*) 40 mg PO DAILY [facility] Last Admin: 04/13/18 08:18 Dose: 40 mg Hydroxyzine HCl (Atarax Tab*) 50 mg PO Q6H PRN PRN Reason: ANXIETY [place] Carbonate ([place] Carbonate Tab*) 600 mg PO BEDTIME [facility] Last Admin: 04/12/18 20:30 Dose: 600 mg - Discharge Plan Discharge Plan: Inpatient Hospitalization
[2018-04-13] MEDS: Lithium Carbonate TAB* 300 MG PO SCH (21:02)
[2018-04-14] MEDS: Citalopram TAB* 40 MG PO SCH (09:08)
--- NOTE | 2018-04-14 11:01 | PN ---
Subjective - Subjective Date of Service: 04/12/18 Service Type: [id number] Group Psychotherapy Subjective: Gwyn came late to the group. He was quiet but attentive. He did not participate, but was also not disruptive. Assessment - Assessment Inpatient DSM-V Dx: F33.9 Clinical Impression: 27 y.o. single, bisexual, male with a history of depression and alcohol abuse who was just discharged earlier this month from the [facility], who is currently admitted to the medical service on following an intentional suicidal overdose on Benadryl and Seroquel. Plan - Plan Treatment Plan: The patient has been readmitted to psychiatry and is taking a trial of citalopram 40mg PO qday and lithium 600mg PO qhs. Continue inpatient treatment. Medications: Current Medications Acetaminophen (Tylenol Tab*) 650 mg PO Q4H PRN PRN Reason: PAIN Albuterol (Ventolin 2.5 Mg/3 Ml Neb.Griselda*) 2.5 mg INH Q2H PRN PRN Reason: SOB/WHEEZING Citalopram Hydrobromide (Celexa Tab*) 40 mg PO DAILY [facility] Last Admin: 04/14/18 09:08 Dose: 40 mg Hydroxyzine HCl (Atarax Tab*) 50 mg PO Q6H PRN PRN Reason: ANXIETY [place] Carbonate ([place] Carbonate Tab*) 600 mg PO BEDTIME [facility] Last Admin: 04/13/18 21:02 Dose: 600 mg
--- NOTE | 2018-04-14 13:26 | PN ---
Subjective - Subjective Date of Service: 04/14/18 Service Type: 51401 Hosp care 15 min low complexity Subjective: Addy presents with continued vague SI without plan, although his mood is more euthymic today. He is noting some "manicky" symptoms such as hyperactivity and rapid speech, although somewhat less than yesterday. He's not happy being here through the weekend and feels like he could put things in place to make himself safe if allowed to be discharged, however, he is not hostile or upset about it. Objective - Appearance Appearance: Thin Framed Dysmorphic Features: No Hygiene: Normal Grooming: Well Kept - Behavior Psychomotor Activities: Normal Exhibits Abnormal Movement: No - Attitude and Relatedness Attitude and Relatedness: Cooperative Eye Contact: Good - Speech Quality: Unpressured Latencies: Normal Quantity: Terse - Mood Patient's Decription of Mood: "Okay" - Affect Observed Affect: Fair Affect Consistent with: Euthymia - Thought Process Patient's Thought Process: Coherent Thought Content: Yes Passive Wish, No Suicidal Planning, No Homicidal Ideation, No Paranoid Ideation - Sensorium Experiencing Hallucinations: No, Sensorium is Clear Type of Hallucinations: Visual: No, Auditory: No, Command: No - Level of Consciousness Level of Consciousness: Alert Orientation: Yes Intact, Yes Orientated to Time, Yes Orientated to Place, Yes Orientated to Person - Impulse Control Impulse Control: Tenuous - Insight and Judgement Insight and Judgement: Fair - Group Participation Particating in Group Activities: Yes - Medication Management Medication Management Adherence: Yes Assessment - Assessment Merits Inpatient Hospitalization: For Immediate Safety, For Stabilization Inpatient DSM-V Dx: F33.9 Clinical Impression: 27 y.o. single, bisexual, male with a history of depression and alcohol abuse who was just discharged earlier this month from the [facility], who is currently admitted to the medical service on following an intentional suicidal overdose on Benadryl and Seroquel. MHU: Problem List - Patient Problems (1) Major depressive disorder, recurrent episode Current Visit: No Status: Acute Code(s): F33.9 - MAJOR DEPRESSIVE DISORDER, RECURRENT, UNSPECIFIED SNOMED Code(s): 471179023 Plan - Plan Treatment Plan: The patient has been readmitted to psychiatry and is taking a trial of citalopram 40mg PO qday and lithium 600mg PO qhs. I'm concerned that he may have bipolar disorder and that the antidepressant may be causing manic switching. Will lower citalopram to 20mg and observe. [place] level on Tuesday (04/17). Continue inpatient treatment. Continued Medication Management: Different Medication Medications: Current Medications Acetaminophen (Tylenol Tab*) 650 mg PO Q4H PRN PRN Reason: PAIN Albuterol (Ventolin 2.5 Mg/3 Ml Neb.Griselda*) 2.5 mg INH Q2H PRN PRN Reason: SOB/WHEEZING Hydroxyzine HCl (Atarax Tab*) 50 mg PO Q6H PRN PRN Reason: ANXIETY [place] Carbonate ([place] Carbonate Tab*) 600 mg PO BEDTIME [facility] Last Admin: 04/13/18 21:02 Dose: 600 mg - Discharge Plan Discharge Plan: Inpatient Hospitalization
[2018-04-14] MEDS: Lithium Carbonate TAB* 300 MG PO SCH (21:03)
[2018-04-15] MEDS: Citalopram TAB* 20 MG PO SCH (10:05)
[2018-04-15] MEDS: Lithium Carbonate TAB* 300 MG PO SCH (19:51)
[2018-04-16] MEDS: Citalopram TAB* 20 MG PO SCH (08:27)
[2018-04-16] MEDS ORDERED: Mouth Piece, Nicotine* 1 EACH CARTRIDGE INH PRN (13:53)
[2018-04-16] MEDS ORDERED: Nicotine Inhaler* 10 MG AMP INH PRN (13:53)
[2018-04-16] MEDS: Lithium Carbonate TAB* 300 MG PO SCH (20:07)
[2018-04-17] MEDS: Citalopram TAB* 20 MG PO SCH (08:26)
--- NOTE | 2018-04-17 10:50 | PN ---
Subjective - Subjective Date of Service: 04/17/18 Service Type: [id number] Hosp care 15 min low complexity Subjective: Addy is doing well. He had brief passive SI on Tuesday night but none since. He is tolerating his medications well without side effects, although lithium level was low this AM. Agreeable with increasing lithium tonight. He feels ready for discharge and is agreeable with discharge planning recommendations such as [facility] program, medication management at [facility], individual therapy and family therapy with his parents. Patient is cooperative and engaged on the unit. No further symptoms of sped-up thought and speech since we decreased citalopram. Objective - Appearance Appearance: Thin Framed Dysmorphic Features: No Hygiene: Normal Grooming: Well Kept - Behavior Psychomotor Activities: Normal Exhibits Abnormal Movement: No - Attitude and Relatedness Attitude and Relatedness: Cooperative Eye Contact: Good - Speech Quality: Unpressured Latencies: Normal Quantity: Appropriate - Mood Patient's Decription of Mood: "Good" - Affect Observed Affect: Good Affect Consistent with: Euthymia - Thought Process Patient's Thought Process: Coherent Thought Content: No Passive Wish, No Suicidal Planning, No Homicidal Ideation, No Paranoid Ideation - Sensorium Experiencing Hallucinations: No, Sensorium is Clear Type of Hallucinations: Visual: No, Auditory: No, Command: No - Level of Consciousness Level of Consciousness: Alert Orientation: Yes Intact, Yes Orientated to Time, Yes Orientated to Place, Yes Orientated to Person - Impulse Control Impulse Control: Tenuous - Insight and Judgement Insight and Judgement: Fair - Group Participation Particating in Group Activities: Yes - Medication Management Medication Management Adherence: Yes Assessment - Assessment Merits Inpatient Hospitalization: Consolidate Improvements, Pending Safe DC Plan Inpatient DSM-V Dx: F33.9 Clinical Impression: 27 y.o. single, bisexual, male with a history of depression and alcohol abuse who was just discharged earlier this month from the [facility], who is currently admitted to the medical service on following an intentional suicidal overdose on Benadryl and Seroquel. MHU: Problem List - Patient Problems (1) Major depressive disorder, recurrent episode Current Visit: No Status: Acute Code(s): F33.9 - MAJOR DEPRESSIVE DISORDER, RECURRENT, UNSPECIFIED SNOMED Code(s): 677779528 Plan - Plan Treatment Plan: The patient has been readmitted to psychiatry and is taking a trial of citalopram 20mg PO qday and lithium 600mg PO qhs. [place] level this AM was 0.41. Will increase lithium to 900mg PO qhs. Target d/c for tomorrow, 04/18. Continued Medication Management: Different Medication Medications: Current Medications Acetaminophen (Tylenol Tab*) 650 mg PO Q4H PRN PRN Reason: PAIN Albuterol (Ventolin 2.5 Mg/3 Ml Neb.Griselda*) 2.5 mg INH Q2H PRN PRN Reason: SOB/WHEEZING Citalopram Hydrobromide (Celexa Tab*) 20 mg PO DAILY [facility] Last Admin: 04/17/18 08:26 Dose: 20 mg Device (Nicotine Mouth Piece*) 1 each INH ONCE PRN PRN Reason: CRAVINGS Hydroxyzine HCl (Atarax Tab*) 50 mg PO Q6H PRN PRN Reason: ANXIETY [place] Carbonate ([place] Carbonate Tab*) 900 mg PO BEDTIME [facility] Nicotine (Nicotine Inhaler*) 10 mg INH Q2H PRN PRN Reason: NICOTINE CRAVINGS - Discharge Plan Discharge Plan: Outpatient Follow Up Outpatient Program: [facility] Lab Results - Lab Results Lab Results: 04/17/18 06:51 [place] 0.41 L
--- NOTE | 2018-04-17 11:49 | PN ---
MHU: Group Therapy Note - Service Type Service Type: [id number] Group Psychotherapy - Cognitive Behavioral Group Therapy ( CBT):Patient was attentive and participatory in CBT programming this morning, and remained in good behavioral control. Patient expressed positive insights regarding relevant treatment interventions and goals.
[2018-04-17] MEDS ORDERED: Lithium Carbonate TAB* 300 MG PO SCH (21:00)
[2018-04-18 09:53] VITALS: BP 121/65
[2018-04-18] MEDS: Citalopram TAB* 20 MG PO SCH (10:03)
--- NOTE | 2018-04-18 13:29 | DS ---
DATE OF ADMISSION: 04/01/2018. DATE OF DISCHARGE: 04/18/2018. DISCHARGE DIAGNOSES: AXIS I: Bipolar disorder type 2; alcohol use disorder. AXIS II: Rule out borderline and narcissistic personality traits. CONDITION AT THE TIME OF DISCHARGE: Improved. The patient has responded well to milieu therapy. He has been quite active in groups and therapeutic activities. He is agreeable with the continuation of his medications, including Morven and Citalopram, which he is tolerating well. He has been safe on all checks. The patient is denying suicidal ideations. 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 He is agreeable with follow-up treatment in the community, including the [facility] program. Both the patient and his parents have agreed to pursue family therapy as well. His parents are in agreement with the discharge plan and are arriving at the hospital this afternoon to pick the patient up and take him home. We see no barriers to him receiving definitive care in the outpatient setting following his release from the hospital. The patient feels safe and expresses gratitude for the help he's received here on the [facility]. MENTAL STATUS EXAMINATION AT THE TIME OF DISCHARGE: The patient is a young, mixed raced, fair-skinned male with close cropped hair, stubbly rodriguez, and a nose ring. He has tattoos on his fingers and blue nail armenian on his fingernails. He is casually groomed with a T-shirt and knit cap on. He is sitting up in his chair, makes good eye contact. Speech has a normal rate, tone , and volume. Occasionally, he will he display some mild stuttering. Mood is euthymic with a full affect. Thought process is linear and goal-directed. Thought content is significant for his desire to leave the hospital and move in with his parents. He denies suicidal or homicidal thoughts. He denies auditory or visual hallucinations. Insight and judgment appear to be fair given his willingness to receive treatment in the community. Cognitively, he is awake and alert with what would appear to be an average intellect. DISCHARGE INSTRUCTIONS TO THE PATIENT: A. Medications: He takes [place] Carbonate 900 mg p.o. at bedtime, Citalopram 20 mg p.o. daily. B. Diet: Regular. C. Activities: As tolerated. The patient is a smoker; however, he is declining the offer of continued nicotine replacement therapy. We have provided him with the [facility] Smokers Quitline at in the event that he changes his mind about quitting. There are no laboratory or diagnostic studies pending at the time of discharge. D. Follow-up care: The patient will be seen at the [facility] program at [facility] on the day following discharge which will be 04/19/2018. He will also follow-up with Dr. Jeaneth Bautista, his psychiatrist, within one week of discharge. In addition, we have made recommendations that he and his family pursue family therapy. We have given them several referrals and the patient's parents will check to see whether any of them are in their insurance network. E. Substance abuse follow-up: The patient was offered referral to the [facility] [place]; however, he declined. HOSPITAL COURSE - PART A: Reason for admission: The patient is a 27-year-old single, mixed raced, bisexual male with a history of depression and self-injury who was just discharged from the Behavioral Science Unit on 03/22/2018, who now returns to the [facility] as a transfer from the Medical Unit where he underwent medical stabilization following another overdose, this time on approximately 20 tablets of 100 mg Seroquel and close to a full bottle of [id number] Benadryl. The patient indicates that when he left our unit on the 22 of March, he did follow through with seeing a psychiatrist at [facility]. He also started attending groups at the [facility] program; however, he missed several of these during the week of due to the holiday. He is stating that on the Tuesday following he was back in his apartment alone, started feeling isolated from his friends, and had a resumption of suicidal ideations, "I see all my friends who have moved out of [place] and now have careers and are advancing and I feel like I'm stuck here. I can't believe after all those coping skills that I learned, my head just went right back to suicide as the solution to my problems." The patient indicates that he drank a little bit of alcohol, but did not like the taste of it, and got a container of Benadryl and took them with his remaining Seroquel that he had which was prescribed from his previous B[facility] stay. He has been medically cleared, but was still having suicidal ideations and was therefore transferred back to the Mental Health Unit. Symptomatically, he continues to endorse difficulty falling asleep, anhedonia, guilt, poor energy, lack of concentration , and suicidal thoughts. He denied appetite disturbance or psychomotor retardation. Historically, he has had some manic symptoms, particularly in the summer, such as increased goal-directed activities, hyper-talkativeness with mild racing thoughts most recently over the summer; however, he denied any history of grandiosity, decreased need for sleep, distractibility, or indiscrete behaviors. HOSPITAL COURSE - PART B: Psychiatric treatment rendered: The patient was readmitted to the B[facility] and placed on q.15 minute checks for his own safety. I have increased his Citalopram from 20 mg to 40 and increased his Seroquel from 100 mg to 150. Almost immediately, he noticed extreme restlessness and anxiety after taking the Seroquel at night and we felt this was consistent with akathisia. Around the same time, he started feeling over-activated from the Citalopram, becoming hyper-talkative with more racing thought rate. At this time his diagnosis was changed to bipolar type 2 and Seroquel was discontinued in favor of Morven. The Morven dose was only 300 mg which resulted in a therapeutic level of 0.16. It was subsequently increased to 600 mg nightly which resulted in a subtherapeutic level of 0.41. The day prior to admission, the Morven was increased to 900 mg at bedtime and he tolerated this well, although he will need several more days on this medication to get an updated therapeutic level. At any rate, the patient feels considerably better on Morven than he did on Seroquel. Once we decreased his Citalopram from 40 back to 20 mg, his racing thoughts and hyper-talkativeness resolved. At this time, I am comfortable stating that he has bipolar disorder and I feel that Morven is an excellent choice for him. The patient continued to express suicidal ideations and so we had a family meeting attended by his mother and father where we addressed some of his angers issues and at that time made a recommendation for follow-up family therapy in the community which both the patient and his parents agreed to. We also feel that he is an excellent candidate for the [facility] program given the fact that he has limited coping strategies and tends to turn to suicidal ideations and grandiose fantasies whenever stressed. We do feel that he has both borderline and narcissistic personality traits. At this time, Addy is endorsing that he is safe. He has a safety plan in place in which he will live with his parents and has notified several friends that in the event that he has suicidal ideations he will call them and seek assistance and support in lieu of overdosing again. He is also talking about his future, moving to a larger city and starting his [employer] career in [employer]. At this time we feel confident that he is safe enough for discharge. His parents are in agreement with the discharge plan and they are arriving to pick him up. We've enjoyed working with Addy and his family and wish them the best for a full recovery. [id number]/CPS #: [id number] JOSÉ MANUEL
== END 2018-04-18 13:30 | disposition home or self-care (01) | DRG 753 ==
LOC: ED 20:01 → ICU 22:31 → MED 04-03 05:40 → BSU 04-03 14:15
PROVIDERS: ADMIT Internal Medicine; ATTEND Psychiatry & Neurology Psychiatry
PROC: GZHZZZZ Group Psychotherapy (ICD-10-PCS; principal; 2018-04-04)
DX: F31.81 Bipolar II disorder (principal); R45.851 Suicidal ideations; F50.9 Eating disorder, unspecified; F17.210 Nicotine dependence, cigarettes, uncomplicated; R00.0 Tachycardia, unspecified; J45.909 Unspecified asthma, uncomplicated; R45.84 Anhedonia; F41.1 Generalized anxiety disorder; F80.81 Childhood onset fluency disorder; G25.71 Drug induced akathisia; Z91.5 Personal history of self-harm; Z81.8 Family history of other mental and behavioral disorders; Z82.49 Family history of ischemic heart disease and other diseases of the circulatory system; Z72.89 Other problems related to lifestyle
CPT/HCPCS: 36415; 71045; 80048; 80053; 80061; 80178; 80307; 80320; 80329; 81003; 83036; 83605; 84443; 85025; 85027; 85610; 87040; 90847; 90853; 93005; 99222; 99231; 99232; 99238; 99285; A9270-GY; G0480; J2543